=== PATIENT | male | born 1995 | race Two or more races ===

== ENCOUNTER 2024-04-07 16:37 | Emergency (ER) | payer MEDICAID, SELFPAY ==
[2024-04-07 17:00] VITALS: BP 155/96; PULSE 68; RESP 16; TEMP 37.1; O2SAT 97
[2024-04-07 17:05] VITALS: BMI 34.3
--- NOTE | 2024-04-07 17:19 | XR_ITS ---
Examination: CT abdomen and pelvis without contrast. Coronal 3-D reconstructions. Sagittal 2-D reconstructions. Date and time of exam:April 07, 2024 at 1749 hrs. Comparison November 30, 2021 Indications: Onset bilateral flank pain today CTDI: vol (mGy): 12.1 DLP: (mGycm): 720 Technique: Axial images of the abdomen have been obtained, 3 mm slice thickness Intravenous contrast material has not been administered. Low dose protocols were performed. One or more of the following dose reduction techniques were used; automated exposure control, adjustment of the mA and/or KV according to patient size, use of iterative reconstruction technique. Findings: No focal liver or splenic lesions Contracted gallbladder No pancreatic or adrenal mass Minimal left hydronephrosis secondary to 2 mm distal left ureterovesical junction calculus Normal appendix No bowel obstruction No bladder mass Impression: Minimal left hydronephrosis secondary to 2 mm distal left ureterovesical junction calculus
--- NOTE | 2024-04-07 17:20 | PD.EDRME ---
Rapid Medical Screening Exam RME Arrival date/time: 04/07/24 16:37 28-year-old male with past medical history of kidney stones presents emergency department complaining of left flank pain with nausea and vomiting that started this morning. Chief Complaint: Back Pain/Injury Time Seen by Provider: 04/07/24 17:19 Vital signs: Vital Signs Temperature 98.8 F 04/07/24 17:00 Pulse Rate 68 04/07/24 17:00 Respiratory Rate 16 04/07/24 17:00 Blood Pressure 155/96 H 04/07/24 17:00 Pulse Oximetry (%) 97 04/07/24 17:00 Oxygen Delivery Method Room Air 04/07/24 17:00
[2024-04-07 17:57] LABS: Collection Type, Urine Clean Catch; Squamous Epithelial Cell,Urine 0 /hpf (0-5)
[2024-04-07] MEDS: KETOROLAC INJ 60 MG/2 ML VIAL 30 MG IM (17:59)
[2024-04-07] MEDS: ONDANSETRON ODT 4 MG TABRAP PO (17:59)
[2024-04-07 18:01] LABS: Basophils % (Auto) 0 % (0-2.5); Eosinophils # (Auto) 0.2 Thou/mm3 (0.0-0.5); Eosinophils % (Auto) 2 % (0-10); Hematocrit 44.5 % (41.0-53.0); Hemoglobin 15.1 g/dL (13.5-16.0); Immature Granulocytes % (Auto) 0 % (0-0); Immature Granulocytes Auto 0.02 Thou/mm3 (0.00-0.00); Lymphocytes # (Auto) 1.9 Thou/mm3 (1.0-4.8); Lymphocytes % (Auto) 15 % (10-50); Mean Corpuscular HGB Conc 33.9 g/dl (31.0-37.0); Mean Corpuscular Hemoglobin 28.8 pg (25.0-35.0); Mean Corpuscular Volume 85 fL (80-100); Monocytes # (Auto) 0.8 Thou/mm3 (0.0-0.8); Monocytes % (Auto) 7 % (0-12); Neutrophils # (Auto) 9.4 Thou/mm3 (1.8-7.7); Neutrophils % (Auto) 76 % (37-80); Nucleated Red Blood Cell % 0 /100 WBC (0); Platelet Count 265 Thou/mm3 (140-440); Red Blood Count 5.25 Miln/mm3 (4.50-5.90); White Blood Count 12.3 Thou/mm3 (3.8-10.6)
[2024-04-07 18:22] LABS: Alanine Aminotransferase 25 U/L (10-49); Albumin, Serum 4.8 gm/dL (3.5-5.0); Albumin/Globulin Ratio 1.9 (1.2-2.2); Alkaline Phosphatase 75 U/L (46-116); Anion Gap 5 (7-16); Aspartate Amino Transferase 20 U/L (0-34); BUN/Creatinine Ratio 13 Ratio (12-20); Bilirubin,Total 0.7 mg/dL (0.3-1.2); Blood Urea Nitrogen 12 mg/dL (9-23); Calcium 9.5 mg/dL (8.3-10.6); Calcium (Corrected) 9.5 mg/dL (8.5-10.1); Carbon Dioxide 27.6 mMol/L (20.0-31.0); Chloride 105 mMol/L (98-107); Creatinine (Component) 0.9 mg/dL (0.6-1.3); Estimated Creatinine Clearance 149.4 mL/min (>60); Globulin 2.5 gm/dL (2.3-3.5); Glucose 113 mg/dL (74-106); Lipase 39 U/L (12-53); Osmolality,Calculated 276 (275-295); Potassium 3.7 mMol/L (3.4-5.1); Sodium 138 mMol/L (136-145); Total Protein 7.3 gm/dL (5.7-8.2); eGFR > 60 See Note
[2024-04-07 18:28] LABS: Bilirubin,Urine Negative (Negative); Blood,Urine 1+ (Negative); Clarity,Urine Clear (Clear/Hazy); Color,Urine Colorless (Lt Yel-Yel); Culture Indicated,Urine Not Indicated; Glucose, Urine Negative (Negative); Ketones,Urine Negative (Negative); Leukocyte Esterase,Urine Negative (Negative); Nitrite,Urine Negative (Negative); Protein,Urine Negative (Neg - Trace); RBC,Urine 1 /hpf (0-3); Specific Gravity,Urine 1.007 (1.001-1.035); Urobilinogen,Urine Negative mg/dL (0.0-1.0); WBC,Urine < 1 /hpf (0-5)
--- NOTE | 2024-04-07 20:26 | PRELIM_ITS ---
CT abdomen and pelvis without intravenous contrast (axial sections with sagittal and coronal reformat s) April 07, 2024 at 1749 hours Clinical History: Left flank pain.Comparison: No prior study is av ailable for comparison. Findings:There is a 2 mm obstructing calculus in the left terminal ureter cau sing mild hydroureteronephrosis (axial images 204/287) and periureteric/perinephric fat stranding.The urinary bladder is unremarkable.The liver, gallbladder, spleen, pancreas and adrenals appear unremar kable on this noncontrast study.No evidence of bowel obstruction. The appendix is within normal limit s (axial images 135-148/287). No free fluid or free air is seen.The osseous structures are unremarkab le.The lung bases are clear. Impression:A 2 mm obstructing calculus in the left terminal ureter causi ng mild hydroureteronephrosis. Report Electronically Signed By: Eder Balderas 04/07/2024 8:25: 15 PM [EST]
--- NOTE | 2024-04-07 20:41 | EDNOTE_ITS ---
ED General RME/HPI General Chief complaint: Back Pain/Injury Stated complaint: B/L FLANK PAIN Time Seen by Provider: 04/07/24 17:19 Arrival date/time: 04/07/24 16:37 RME / HPI RME / HPI narrative: 04/07/24 16:37 28-year-old male with past medical history of kidney stones presents emergency department complaining of left flank pain with nausea and vomiting that started this morning. DR. HARRY MAIN ED EVALUATION: 28 year old male presents to the Emergency Department with complaint of bilateral flank pain, worse left side. Pain is described as aching and rated moderate in severity. Patient denies any other symptoms at this time. PMHx: Denies any PMHx, surgeries, daily medications, or known allergies. Social Hx: No tobacco, alcohol, or substance use. Related Data Home Medications ?Medication ?Instructions ?Recorded ?Confirmed Pseudoephedrine HCl (Suphedrin 120 mg PO BID ##0 10/10/15 12-Hour) azithromycin 250 mg tablet 250 mg PO QDAY #0 tabs 10/10/15 (Zithromax) Previous Rx's ?Medication ?Instructions ?Recorded ibuprofen 800 mg tablet 800 mg PO TID PRN pain #30 tabs 11/30/21 ondansetron 4 mg disintegrating 4 mg PO Q6H PRN nausea and 11/30/21 tablet vomiting #10 tabs tamsulosin 0.4 mg capsule (Flomax) 0.4 mg PO QDAY #7 caps 11/30/21 ibuprofen 600 mg tablet 600 mg PO Q6H PRN pain #30 tabs 04/07/24 sulfamethoxazole 800 1 tab PO BID 7 days #14 tabs 04/07/24 mg-trimethoprim 160 mg tablet (Bactrim DS) tamsulosin 0.4 mg capsule (Flomax) 0.4 mg PO QDAY #30 caps 04/07/24 Allergies Allergy/AdvReac Type Severity Reaction Status Date / Time NKA* Allergy Uncoded 04/07/24 16:39 Review of Systems Review of Systems Systems Reviewed: All systems reviewed, normal except as documented Narrative Review of Systems: GEN: No fever, no chills, no weight loss EYES: No discharge, no visual changes, no pain HEENT: No ear pain, no congestion, no sore throat PULM: No shortness of breath, no cough, no congestion CV: No chest pain, no dyspnea on exertion, no palpitations GI: No nausea, no vomiting, no diarrhea, + bilateral flank pain, worse left side, no constipation : No frequency, no urgency and no dysuria MUSC/SKEL: No joint pain, no back pain SKIN: No rash PSYCH: No hallucinations, no depression HEME/LYMPH: No easy bleeding or bruising tendencies NEURO: No weakness, no headache Past Medical History Social History SMOKING STATUS: Never smoker SUBSTANCE USE: does not use ALCOHOL: Never ED Exam Narrative Physical exam: GENERAL APPEARANCE: Well hydrated, well nourished, in no acute distress. VITALS: All vitals were reviewed and the pulse ox is 97% on room air which is normal according to my interpretation. HEENT: Normocephalic, atramatic, EOMI, EACs are patent. There is no bulge or retraction. Throat without erythema or exudate. Moist oromucosa. No jaundice NECK: Supple, no JVD or bruits. CARDIOVASCULAR: Heart regular without S3-S4 or murmur. No rubs or gallops. LUNGS/CHEST: Clear to auscultation bilaterally. No rales, rhonchi, or wheezing. Normal inspection. ABDOMEN: Minimal discomfort in the left flank area. No pulsatile masses. No rebound, rigidity, or guarding. No incarcerated hernia. EXTREMITIES: No edema, clubbing, or cyanosis. Intact CSM. Normal inspection and palpation. SKIN: Warm and dry without rashes. Normal inspection. MUSCULOSKELETAL: No gross deformity, full ROM all extremities. Normal inspection. NEURO: Alert and oriented x3. Cranial nerves II through XII grossly intact. There are no other motor or sensory deficits noted. PSYCHIATRIC: Normal mood and affect. No psychosis. Course Quality Measures none Orders Category Date Time Status CT abdomen pelvis wo con Stat Exams 04/07/24 17:19 Completed CBC Stat Lab 04/07/24 17:40 Completed CMP [Comprehensive Metabolic Panel] Stat Lab 04/07/24 17:40 Completed Lipase Stat Lab 04/07/24 17:40 Completed Urinalysis, C/S if Indicated Stat Lab 04/07/24 17:43 Completed Ketorolac Inj [Toradol Inj] Med 04/07/24 17:19 Discontinued 30 mg IM X1 ONE Ondansetron Odt [Zofran Odt] Med 04/07/24 17:19 Discontinued 4 mg PO X1 ONE Tamsulosin HCl [Flomax] Med 04/07/24 20:52 Once 0.4 mg PO X1 ONE Vital Signs Vital signs: Vital Signs Temperature 98.8 F 04/07/24 17:00 Pulse Rate 68 04/07/24 17:00 Respiratory Rate 16 04/07/24 17:00 Blood Pressure 155/96 H 04/07/24 17:00 Pulse Oximetry (%) 97 04/07/24 17:00 Oxygen Delivery Method Room Air 04/07/24 17:00 [facility] Patient data External records reviewed:: [facility] previous records (Reviewed last ED visit dated 01/25/23, discharged with the following: Chest wall muscle strain.) Clinical information provided by:: patient Social determinants that could affect healthcare access:: none Patient has the following chronic illnesses:: Denies any PMHx, surgeries, daily medications, or known allergies. How is presenting disease/condition affected by chronic disease/condition?: no chronic disease Evaluation data The following diagnostics were reviewed and interpreted by me:: lab results and radiology exam(s) Lab and/or radiology exams considered but not ordered:: none Interpretation Summary: See above under [facility] narrative. RADIOLOGY: Procedure(s): CT abdomen pelvis wo [facility] Accession Number(s): [id number] cc: Louie Ivy MD; NO PRIMARY/FAMILY,PHYSICIAN; Ozzie Zavala (FNP)~ Examination: CT abdomen and pelvis without contrast. Coronal 3-D reconstructions. Sagittal 2-D reconstructions. Date and time of exam:April 07, 2024 at 1749 hrs. Comparison November 30, 2021 Indications: Onset bilateral flank pain today CTDI: vol (mGy): 12.1 DLP: (mGycm): 720 Technique: Axial images of the abdomen have been obtained, 3 mm slice thickness Intravenous contrast material has not been administered. Low dose protocols were performed. One or more of the following dose reduction techniques were used; automated exposure control, adjustment of the mA and/or KV according to patient size, use of iterative reconstruction technique. Findings: No focal liver or splenic lesions Contracted gallbladder No pancreatic or adrenal mass Minimal left hydronephrosis secondary to 2 mm distal left ureterovesical junction calculus Normal appendix No bowel obstruction No bladder mass Impression: Minimal left hydronephrosis secondary to 2 mm distal left ureterovesical junction calculus Dictated By: Louie Ivy MD Medications Medications considered but not ordered:: none Medication administrations:: Medication Administration History Discontinued Medications Ketorolac Tromethamine (Ketorolac Inj 60 Mg/2 Ml Vial) 30 mg IM X1 ONE Stop: 04/07/24 17:20 Last Admin: 04/07/24 17:59 Dose: 30 mg Documented By: TOMAS Ondansetron HCl (Ondansetron Odt 4 Mg Tabrap) 4 mg PO X1 ONE; Protocol Stop: 04/07/24 17:20 Last Admin: 04/07/24 17:59 Dose: 4 mg Documented By: TOMAS see above Consultations Consultation(s) initiated? (list below): No Diagnosis Differential Diagnosis ED Complaint MDM: Kidney stone. Ureteral stone. Hydronephrosis. Most likely diagnosis given after review of the tests above:: Left UVJ stone Admission Indicated Admission indicated?: not indicated Explain why admission is indicated or not indicated:: Patient has no emergent abnormalities on his studies and can be managed on an outpatient basis. Admission Request Was there a request for admission?: No Disposition Plan Disposition Plan: Discharge Discharge Attestation Discharge Attestation: The patient and all family members were given an opportunity to ask questions and understood the discharge instructions. Discharge instructions specifically effects, indications for sooner follow up or return to the emergency department, and the expected course of current diagnosis. Patient condition: Stable Medical Decision Making MDM Narrative MDM Narrative: IAngelica, am scribing for and in the presence of Dr. Harry. WBC count of 12,000. CMP and lipase negative. UA is negative. Except for microscopic blood. CT abdomen and pelvic was reviewed and interpreted by me as follow: Tiny stone in the left distal ureter right at the UVJ. Liver, spleen, right kidney, spleen, pancreas all within normal limit. No free air. No free fluid. No bowel obstruction. No pericecal stranding.. I gave the patient a copy of the CT report to follow-up with PMD for further evaluation and treatment. Differential Diagnosis Differential Diagnosis: Kidney stone. Ureteral stone. Hydronephrosis. Lab Data 04/07/24 17:40 04/07/24 17:40 Labs: Lab Results 04/07/24 04/07/24 Range/Units 17:40 17:43 WBC 12.3 H (3.8-10.6) Thou/mm3 RBC 5.25 (4.50-5.90) Miln/mm3 Hgb 15.1 (13.5-16.0) g/dL Hct 44.5 (41.0-53.0) % MCV 85 (80-100) fL MCH 28.8 (25.0-35.0) pg MCHC 33.9 (31.0-37.0) g/dl RDW Std Deviation 40.0 (35.1-43.9) fL Plt Count 265 (140-440) Thou/mm3 Neut % (Auto) 76 (37-80) % Lymph % (Auto) 15 (10-50) % Ogle % (Auto) 7 (0-12) % Eos % (Auto) 2 (0-10) % Baso % (Auto) 0 (0-2.5) % Neut # (Auto) 9.4 H (1.8-7.7) Thou/mm3 Lymph # (Auto) 1.9 (1.0-4.8) Thou/mm3 Ogle # (Auto) 0.8 (0.0-0.8) Thou/mm3 Eos # (Auto) 0.2 (0.0-0.5) Thou/mm3 Baso # (Auto) 0.0 (0.0-0.2) Thou/mm3 Immature Gran # (Auto) 0.02 H (0.00-0.00) Thou/mm3 Absolute Nucleated RBC 0.00 (0.00-0.00) Thou/mm3 Immature Gran % 0 (0-0) % Nucleated RBC % 0 (0) /100 WBC Sodium 138 (136-145) mMol/L Potassium 3.7 (3.4-5.1) mMol/L Chloride 105 (98-107) mMol/L Carbon Dioxide 27.6 (20.0-31.0) mMol/L Anion Gap 5 L (7-16) BUN 12 (9-23) mg/dL Creatinine 0.9 (0.6-1.3) mg/dL Estim Creat Clear Calc 149.4 (>60) mL/min eGFR > 60 (60 - ) See Note BUN/Creatinine Ratio 13 (12-20) Ratio Glucose 113 H (74-106) mg/dL Calculated Osmolality 276 (275-295) Calcium 9.5 (8.3-10.6) mg/dL Corrected Calcium 9.5 (8.5-10.1) mg/dL Total Bilirubin 0.7 (0.3-1.2) mg/dL AST 20 (0-34) U/L ALT 25 (10-49) U/L Alkaline Phosphatase 75 (46-116) U/L Total Protein 7.3 (5.7-8.2) gm/dL Albumin 4.8 (3.5-5.0) gm/dL Globulin 2.5 (2.3-3.5) gm/dL Albumin/Globulin Ratio 1.9 (1.2-2.2) Lipase 39 (12-53) U/L Ur Collection Type Clean Catch Urine Color Colorless A (Lt Yel-Yel) Urine Clarity Clear (Clear/Hazy) Urine pH 6.0 (5.0-7.0) Ur Specific [place] 1.007 (1.001-1.035) Urine Protein Negative (Neg - Trace) Urine Glucose (UA) Negative (Negative) Urine Ketones Negative (Negative) Urine Blood 1+ A (Negative) Urine Nitrite Negative (Negative) Urine Bilirubin Negative (Negative) Urine Urobilinogen (Auto) Negative (0.0-1.0) mg/dL Ur Leukocyte Esterase Negative (Negative) Urine RBC 1 (0-3) /hpf Urine WBC < 1 (0-5) /hpf Ur Squamous Epith Cells 0 (0-5) /hpf Urine Bacteria None (None) Ur Culture Indicated? Not Indicated Discharge Plan Plan Patient Disposition: HOME (Self Care) Disposition Comment: Stable for MA home Prescriptions/Referrals Prescriptions/Med Rec: New sulfamethoxazole-trimethoprim [Bactrim DS] 800-160 mg tablet 1 tab PO BID 7 Days Qty: 14 0RF tamsulosin [Flomax] 0.4 mg capsule 0.4 mg PO QDAY Qty: 30 0RF ibuprofen 600 mg tablet 600 mg PO Q6H PRN (Reason: pain) Qty: 30 0RF No Action azithromycin [Zithromax] 250 MG tablet 250 mg PO QDAY Qty: 0 Pseudoephedrine HCl (Suphedrin 12-Hour) 120 MG TABLET.ER 120 mg PO BID Qty: 0 ibuprofen 800 mg tablet 800 mg PO TID PRN (Reason: pain) Qty: 30 0RF ondansetron 4 mg tablet,disintegrating 4 mg PO Q6H PRN (Reason: nausea and vomiting) Qty: 10 0RF tamsulosin [Flomax] 0.4 mg capsule 0.4 mg PO QDAY Qty: 7 0RF Referrals: No Primary/Family,Physician [Primary Care Provider] - In 1 week Problem List Clinical Impression: Ureteral calculus Patient/Caregiver Discharge Instructions Education Materials: ED Kidney Stone w/ Colic Additional Instructions: You have a 2 mm stone at the distal left ureter right next to the bladder. Drink plenty of liquid. Take medication as prescribed. Follow-up with your medical doctor in 3 days for recheck and further care. Please show your doctor copy of the CT report that I gave you. Return to the nearest emergency department if condition worsens or if new symptoms develop especially trouble urinating or fever Print Language: Nepali Stand Alone Forms: Elena Award Info., Patient Portal Info Letter
[2024-04-07 22:52] VITALS: BP 101/68; PULSE 55; RESP 18; TEMP 36.6; O2SAT 98
[2024-04-07] MEDS: TRIMETHOPRIM/SULFA 160/800 DS TABLET 1 TAB PO (22:54)
[2024-04-07] MEDS: TAMSULOSIN HCL 0.4 MG CAPSULE PO (22:55)
== END 2024-04-07 22:59 | disposition home or self-care (01) ==
PROVIDERS: Emergency Provider Emergency Medicine
DX: N13.2 Hydronephrosis with renal and ureteral calculous obstruction (principal)
CPT/HCPCS: 36415; 74176; 80053; 81001; 83690; 85025; 96372; 99284; J1885; Q0162; A9270